=== PATIENT | female | born 1960 | race African-American/Black ===

== ENCOUNTER 2020-12-09 10:10 | Inpatient (IN) | payer OTHER ==
[2020-12-09] MEDS ORDERED: Lorazepam 2 MG/ML VIAL ONE ×2 (10:17→10:26)
[2020-12-09] MEDS ORDERED: diphenhydrAMINE 50 MG CAP ONE (10:18)
[2020-12-09] MEDS ORDERED: diphenhydrAMINE 50 MG/ML VIAL ONE (10:18)
[2020-12-09] MEDS ORDERED: Haloperidol Lactate 5 MG/ML VIAL ONE (10:18)
[2020-12-09 10:49] LABS: #Eosinphils 0.1 thou/uL (0.0-0.7); #Lymphocytes 1.9 thou/uL (1.20-3.40); #Monocytes 0.6 thou/uL (0.11-0.59); %Basophils 0.2 % (0.0-1.0); %Eosinophils 1.9 % (0.0-10.0); %Lymphocytes 25.5 % (21.0-51.0); %Monocytes 7.3 % (0.0-10.0); %Neutrophils 65.2 % (42.0-75.0); Hemoglobin 9.9 g/dL (12.0-16.0); Mean Corpuscular HGB CONC 32.9 g/dL (32.0-36.0); Mean Corpuscular Volume 94.4 fL (78.0-98.0); Mean Platelet Volume 6.2 fL (7.4-10.4); Platelet Count 295 thou/uL (130-400); RBC Distribution Width 15.6 % (11.5-14.5); Red Blood Cell (RBC) Count 3.18 mill/uL (4.20-5.40); White Blood Cell (WBC) Count 7.6 thou/uL (4.8-10.8)
[2020-12-09 11:12] LABS: ALT (SGPT) 118 U/L (8-55); AST (SGOT) 36 U/L (5-34); Acetaminophen Less than 6.0 mcg/mL (10.0-30.0); Albumin 3.3 g/dL (3.5-5.0); Alcohol Less than 10 mg/dL (Less than 10); Alkaline Phosphatase 358 U/L (40-110); Anion Gap 13 mmol/L (10-20); BUN (Urea Nitrogen) 22 mg/dL (9.8-20.1); Bilirubin, Total 0.3 mg/dL (0.2-1.2); CK (CPK) 233 U/L (29-168); Calc. Creatinine Clearance 0 mL/min (70-130); Calcium 9.4 mg/dL (7.8-10.44); Carbon Dioxide 25 mmol/L (22-29); Chloride 104 mmol/L (98-107); Globulin 3.8 g/dL (2.4-3.5); Glucose 100 mg/dL (70-105); Potassium 3.9 mmol/L (3.5-5.1); Protein, Total 7.1 g/dL (6.0-8.3); Salicylate Less than 8.0 mg/dL (15.0-30.0); Sodium 138 mmol/L (136-145)
[2020-12-09 11:57] LABS: Amphetamine Not Detected (NotDetected); Barbiturates Screen Not Detected (NotDetected); Benzodiazepine Screen Not Detected (NotDetected); Cocaine Metabolite Screen Not Detected (NotDetected); Medtox Control Line Valid? VALID (VALID); Medtox Reader # READER 4; Methadone Not Detected (NotDetected); Methamphetamine Not Detected (NotDetected); Opiate Screen Not Detected (NotDetected); Oxycodone Screen Not Detected (NotDetected); Phencyclidine (PCP) Not Detected (NotDetected); THC/Cannabinoid Screen Not Detected (NotDetected); Tricyclic Screen Not Detected (NotDetected)
[2020-12-09 12:05] LABS: Bilirubin Negative (Negative); Blood, Urine Trace (Negative); Clarity Clear (Clear); Glucose, Urine (Dipstick) Negative (Negative); Ketone, Urine Trace mg/dL (Negative); Leukocyte Negative (Negative); Nitrite Negative (Negative); Protein, Urine (Dipstick) 100 mg/dL (Neg-Trace); Urobilinogen 0.2 mg/dL (Less than 2)
[2020-12-09 12:12] LABS: Bacteria/HPF None Seen HPF (None Seen); Squamous Epithelial 0-3 HPF (0-3); WBC/HPF 0-3 HPF (0-3)
[2020-12-09] MEDS ORDERED: Docusate 100 MG CAP PO SCH (17:15)
[2020-12-09] MEDS ORDERED: Lantus 1000 UNITS/10 ML VIAL SC SCH (18:00)
[2020-12-09] MEDS ORDERED: Losartan 25 MG TAB PO SCH (18:00)
[2020-12-09] MEDS ORDERED: traZODone HCl 50 MG TAB ONE (20:51)
[2020-12-09] MEDS ORDERED: OLANZapine 5 MG TAB ONE (20:51)
[2020-12-09] MEDS ORDERED: OXcarbazepine 300 MG TAB PO SCH (21:00)
[2020-12-09] MEDS ORDERED: OXcarbazepine 600 MG TAB PO SCH (21:00)
[2020-12-10] MEDS ORDERED: Acetaminophen 500 MG TAB ONE (02:49)
[2020-12-10] MEDS ORDERED: OLANZapine 5 MG TAB ONE ×2 (06:37→17:07)
[2020-12-10] MEDS ORDERED: Metoprolol Tartrate 25 MG TAB ONE (06:37)
[2020-12-10] MEDS ORDERED: Aspirin Chewable 81 MG TAB ONE (06:37)
[2020-12-10] MEDS ORDERED: Losartan 25 MG TAB PO SCH (07:45)
[2020-12-10] MEDS ORDERED: risperiDONE 1 MG TAB ONE (12:39)
[2020-12-10] MEDS ORDERED: Ziprasidone 20 MG VIAL ONE (19:50)
[2020-12-10] MEDS ORDERED: Promethazine 25 MG TAB ONE (19:50)
[2020-12-11] MEDS ORDERED: Acetaminophen 325 MG TAB ONE ×3 (05:43→21:35)
[2020-12-11] MEDS ORDERED: Haloperidol Lactate 5 MG/ML VIAL ONE (06:12)
[2020-12-11] MEDS ORDERED: Metoprolol Tartrate 25 MG TAB ONE (21:35)
[2020-12-11] MEDS ORDERED: traZODone HCl 50 MG TAB ONE (21:35)
[2020-12-11] MEDS ORDERED: Promethazine 25 MG TAB ONE (21:35)
[2020-12-12] MEDS ORDERED: Haloperidol Lactate 5 MG/ML VIAL ONE (04:55)
[2020-12-12] MEDS ORDERED: OLANZapine 5 MG TAB ONE (07:52)
[2020-12-12] MEDS ORDERED: Aspirin Chewable 81 MG TAB ONE (07:52)
[2020-12-12] MEDS ORDERED: Promethazine 25 MG TAB ONE ×2 (07:52→22:59)
[2020-12-12] MEDS ORDERED: Metoprolol Tartrate 25 MG TAB ONE (07:52)
[2020-12-12 20:10] LABS: SARS-CoV-2 NAA Rapid Test Not Detected (NotDetected)
[2020-12-12] MEDS ORDERED: traZODone HCl 50 MG TAB ONE (22:57)
[2020-12-12] MEDS ORDERED: Promethazine HCl 25 MG/ML VIAL ONE (22:58)
[2020-12-13] MEDS ORDERED: Promethazine 25 MG TAB ONE (08:14)
[2020-12-13] MEDS ORDERED: OLANZapine 5 MG TAB ONE (08:14)
[2020-12-13] MEDS ORDERED: Aspirin Chewable 81 MG TAB ONE (08:14)
[2020-12-13] MEDS ORDERED: Metoprolol Tartrate 25 MG TAB ONE (08:14)
[2020-12-13 14:06] LABS: #Eosinphils 0.1 thou/uL (0.0-0.7); #Lymphocytes 1.6 thou/uL (1.20-3.40); #Monocytes 0.6 thou/uL (0.11-0.59); #Neutrophils 8.1 thou/uL (1.40-6.50); %Basophils 0.4 % (0.0-1.0); %Eosinophils 0.9 % (0.0-10.0); %Lymphocytes 15.1 % (21.0-51.0); %Monocytes 6.1 % (0.0-10.0); %Neutrophils 77.5 % (42.0-75.0); Hemoglobin 10.4 g/dL (12.0-16.0); Mean Corpuscular HGB CONC 31.8 g/dL (32.0-36.0); Mean Corpuscular Hemoglobin 30.3 pg (27.0-31.0); Mean Corpuscular Volume 95.2 fL (78.0-98.0); Mean Platelet Volume 6.8 fL (7.4-10.4); Platelet Count 309 thou/uL (130-400); RBC Distribution Width 15.7 % (11.5-14.5); Red Blood Cell (RBC) Count 3.43 mill/uL (4.20-5.40); White Blood Cell (WBC) Count 10.4 thou/uL (4.8-10.8)
[2020-12-13 14:22] LABS: ALT (SGPT) 93 U/L (8-55); AST (SGOT) 55 U/L (5-34); Albumin 3.1 g/dL (3.5-5.0); Alkaline Phosphatase 319 U/L (40-110); Anion Gap 16 mmol/L (10-20); BUN (Urea Nitrogen) 28 mg/dL (9.8-20.1); Bilirubin, Total 0.4 mg/dL (0.2-1.2); CK (CPK) 115 U/L (29-168); Calc. Creatinine Clearance 0 mL/min (70-130); Carbon Dioxide 18 mmol/L (22-29); Chloride 103 mmol/L (98-107); Globulin 3.9 g/dL (2.4-3.5); Glucose 164 mg/dL (70-105); Potassium 4.8 mmol/L (3.5-5.1); Sodium 132 mmol/L (136-145)
[2020-12-13] MEDS ORDERED: Furosemide 40 MG TAB ONE (15:25)
[2020-12-13] MEDS ORDERED: Nitroglycerin 2% Ointment 1 INCH/1 GM Packet ONE (18:47)
[2020-12-13] MEDS ORDERED: cloNIDine 0.1 MG TAB ONE (18:47)
[2020-12-13 18:59] LABS: Troponin I 0.019 ng/mL (< 0.028)
[2020-12-13] MEDS: Melatonin 3 MG TAB PO SCH ×4 (20:36→22:09)
[2020-12-13] MEDS: Atorvastatin Calcium 10 MG TAB PO SCH ×4 (20:36→22:09)
[2020-12-13] MEDS: Mirtazapine 15 MG TAB PO SCH ×4 (20:37→22:09)
[2020-12-13] MEDS: OLANZapine 5 MG TAB PO SCH ×8 (20:40→22:15)
[2020-12-13] MEDS: Losartan 25 MG TAB PO SCH ×6 (20:41→22:14)
[2020-12-13] MEDS: OXcarbazepine 300 MG TAB PO SCH ×8 (20:43→22:15)
[2020-12-13] MEDS: traZODone HCl 50 MG TAB PO SCH ×4 (20:50→22:10)
[2020-12-13] MEDS: Promethazine 25 MG TAB PO SCH ×6 (20:50→22:15)
[2020-12-13 21:48] LABS: Troponin I 0.013 ng/mL (< 0.028)
[2020-12-13] MEDS: Magnesium Oxide 400 MG TAB PO SCH ×4 (21:54→22:14)
[2020-12-13] MEDS: Docusate 100 MG CAP PO SCH ×4 (21:57→22:16)
[2020-12-13] MEDS: Spironolactone 25 MG TAB PO SCH ×4 (21:57→22:16)
[2020-12-13] MEDS ORDERED: Dextrose 5% in Water 1,000 ML IV PRN (23:12)
[2020-12-13] MEDS ORDERED: Dextrose 50% Abboject 50 ML SYRINGE SLOW IVP PRN (23:12)
[2020-12-13] MEDS ORDERED: Furosemide 40 MG/4 ML VIAL SLOW IVP SCH (23:15)
[2020-12-14 00:52] LABS: Bacteria/HPF None Seen HPF (None Seen); Bilirubin Negative (Negative); Blood, Urine Negative (Negative); Clarity Clear (Clear); Glucose, Urine (Dipstick) Normal (Negative); Ketone, Urine Negative (Negative); Leukocyte 25 Leu/uL (Negative); Nitrite Negative (Negative); Protein, Urine (Dipstick) 70 mg/dL (Neg-Trace); RBC/HPF 0-3 HPF (0-3); Specific Gravity, Urine 1.009 (1.002-1.036); Squamous Epithelial 0-3 HPF (0-3); Urobilinogen Normal mg/dL (Less than 2); WBC/HPF 0-3 HPF (0-3); pH, Urine 5.5 (5.0-9.0)
[2020-12-14 01:05] LABS: Amphetamine Not Detected (NotDetected); Barbiturates Screen Not Detected (NotDetected); Benzodiazepine Screen Not Detected (NotDetected); Cocaine Metabolite Screen Not Detected (NotDetected); Medtox Control Line Valid? VALID (VALID); Medtox Reader # READER 1; Methadone Not Detected (NotDetected); Methamphetamine Not Detected (NotDetected); Opiate Screen Not Detected (NotDetected); Oxycodone Screen Not Detected (NotDetected); Phencyclidine (PCP) Not Detected (NotDetected); THC/Cannabinoid Screen Not Detected (NotDetected); Tricyclic Screen Not Detected (NotDetected)
[2020-12-14 05:19] LABS: #Eosinphils 0.2 thou/uL (0.0-0.7); #Lymphocytes 1.4 thou/uL (1.20-3.40); #Monocytes 0.5 thou/uL (0.11-0.59); #Neutrophils 4.2 thou/uL (1.40-6.50); %Basophils 0.4 % (0.0-1.0); %Eosinophils 3.8 % (0.0-10.0); %Lymphocytes 22.1 % (21.0-51.0); %Monocytes 7.9 % (0.0-10.0); %Neutrophils 65.8 % (42.0-75.0); Hemoglobin 10.1 g/dL (12.0-16.0); Mean Corpuscular HGB CONC 32.3 g/dL (32.0-36.0); Mean Corpuscular Hemoglobin 30.9 pg (27.0-31.0); Mean Corpuscular Volume 95.7 fL (78.0-98.0); Mean Platelet Volume 6.7 fL (7.4-10.4); Platelet Count 326 thou/uL (130-400); RBC Distribution Width 15.8 % (11.5-14.5); Red Blood Cell (RBC) Count 3.28 mill/uL (4.20-5.40); White Blood Cell (WBC) Count 6.3 thou/uL (4.8-10.8)
[2020-12-14 05:32] LABS: Anion Gap 15 mmol/L (10-20); BUN (Urea Nitrogen) 25 mg/dL (9.8-20.1); Calc. Creatinine Clearance 74 mL/min (70-130); Carbon Dioxide 22 mmol/L (22-29); Chloride 100 mmol/L (98-107); Glucose 146 mg/dL (70-105); Salicylate Less than 8.0 mg/dL (15.0-30.0); Sodium 133 mmol/L (136-145)
[2020-12-14] MEDS: Furosemide 40 MG/4 ML VIAL SLOW IVP SCH ×2 (05:40→14:21)
[2020-12-14] MEDS: HumaLOG 300 UNITS/3 ML VIAL SC PRN ×4 (05:47→20:30)
[2020-12-14] MEDS: Magnesium Oxide 400 MG TAB PO SCH (08:39)
[2020-12-14] MEDS: Aspirin Chewable 81 MG TAB PO SCH (08:39)
[2020-12-14] MEDS: OXcarbazepine 300 MG TAB PO SCH ×2 (08:40→20:18)
[2020-12-14] MEDS: Promethazine 25 MG TAB PO SCH ×2 (08:40→17:21)
[2020-12-14] MEDS: Spironolactone 25 MG TAB PO SCH (08:41)
[2020-12-14] MEDS: Docusate 100 MG CAP PO SCH ×2 (08:41→17:20)
[2020-12-14] MEDS: OLANZapine 5 MG TAB PO SCH ×3 (08:41→20:16)
[2020-12-14] MEDS: Losartan 25 MG TAB PO SCH ×2 (08:41→17:20)
[2020-12-14] MEDS: Enoxaparin Sodium 30 MG/0.3 ML SYRINGE SC SCH (08:42)
[2020-12-14] MEDS ORDERED: Nicotine 21 MG PATCH TD SCH (09:00)
[2020-12-14] MEDS ORDERED: Enoxaparin Sodium 30 MG/0.3 ML SYRINGE SC SCH (09:00)
[2020-12-14] MEDS: Atorvastatin Calcium 10 MG TAB PO SCH ×2 (09:40→20:18)
[2020-12-14] MEDS: Mirtazapine 15 MG TAB PO SCH ×2 (09:40→20:18)
[2020-12-14] MEDS: Melatonin 3 MG TAB PO SCH ×2 (09:40→20:15)
[2020-12-14] MEDS: traZODone HCl 50 MG TAB PO SCH ×2 (09:40→20:17)
[2020-12-14] MEDS: Acetaminophen 325 MG TAB PO PRN ×2 (12:21→21:30)
[2020-12-14] MEDS ORDERED: Benzonatate 100 MG CAP PO PRN (21:50)
[2020-12-15] MEDS: Acetaminophen 325 MG TAB PO PRN ×2 (04:58→11:15)
[2020-12-15] MEDS: Furosemide 20 MG/2 ML VIAL SLOW IVP SCH ×2 (05:39→14:12)
[2020-12-15 06:13] LABS: Anion Gap 14 mmol/L (10-20); BUN (Urea Nitrogen) 28 mg/dL (9.8-20.1); Calc. Creatinine Clearance 79 mL/min (70-130); Calcium 8.4 mg/dL (7.8-10.44); Carbon Dioxide 25 mmol/L (22-29); Chloride 99 mmol/L (98-107); Glucose 139 mg/dL (70-105); Sodium 134 mmol/L (136-145)
[2020-12-15] MEDS: OXcarbazepine 300 MG TAB PO SCH ×2 (07:57→21:03)
[2020-12-15] MEDS: Spironolactone 25 MG TAB PO SCH (07:57)
[2020-12-15] MEDS: OLANZapine 5 MG TAB PO SCH ×3 (07:58→21:03)
[2020-12-15] MEDS: Docusate 100 MG CAP PO SCH ×2 (07:58→17:09)
[2020-12-15] MEDS: Aspirin Chewable 81 MG TAB PO SCH (07:58)
[2020-12-15] MEDS: Promethazine 25 MG TAB PO SCH ×2 (07:59→17:09)
[2020-12-15] MEDS: Losartan 25 MG TAB PO SCH ×2 (07:59→17:08)
[2020-12-15] MEDS: Magnesium Oxide 400 MG TAB PO SCH (07:59)
[2020-12-15] MEDS: Enoxaparin Sodium 30 MG/0.3 ML SYRINGE SC SCH (08:00)
[2020-12-15] MEDS: HumaLOG 300 UNITS/3 ML VIAL SC PRN ×2 (10:54→17:08)
[2020-12-15] MEDS: Atorvastatin Calcium 10 MG TAB PO SCH (21:02)
[2020-12-15] MEDS: traZODone HCl 50 MG TAB PO SCH (21:02)
[2020-12-15] MEDS: Melatonin 3 MG TAB PO SCH (21:02)
[2020-12-15] MEDS: Mirtazapine 15 MG TAB PO SCH (21:02)
[2020-12-16] MEDS ORDERED: hydrALAZINE 20 MG/ML VIAL SLOW IVP SCH (01:00)
[2020-12-16] MEDS: Acetaminophen 325 MG TAB PO PRN (02:20)
[2020-12-16 05:25] VITALS: BMI 32.3
[2020-12-16 05:57] LABS: Anion Gap 10 mmol/L (10-20); BUN (Urea Nitrogen) 25 mg/dL (9.8-20.1); Calc. Creatinine Clearance 77 mL/min (70-130); Calcium 8.9 mg/dL (7.8-10.44); Carbon Dioxide 29 mmol/L (22-29); Chloride 99 mmol/L (98-107); Glucose 143 mg/dL (70-105); Potassium 3.9 mmol/L (3.5-5.1); Sodium 134 mmol/L (136-145)
[2020-12-16] MEDS: Furosemide 20 MG/2 ML VIAL SLOW IVP SCH (06:12)
[2020-12-16] MEDS: OLANZapine 5 MG TAB PO SCH ×3 (06:12→20:33)
[2020-12-16] MEDS: Magnesium Oxide 400 MG TAB PO SCH (06:12)
[2020-12-16] MEDS: Losartan 25 MG TAB PO SCH ×2 (06:13→18:18)
[2020-12-16] MEDS: Promethazine 25 MG TAB PO SCH ×2 (06:13→18:18)
[2020-12-16] MEDS: HumaLOG 300 UNITS/3 ML VIAL SC PRN ×2 (06:13→20:34)
[2020-12-16] MEDS: Spironolactone 25 MG TAB PO SCH (06:13)
[2020-12-16] MEDS: OXcarbazepine 300 MG TAB PO SCH ×2 (06:18→20:33)
[2020-12-16] MEDS: Aspirin Chewable 81 MG TAB PO SCH (08:34)
[2020-12-16] MEDS: Enoxaparin Sodium 30 MG/0.3 ML SYRINGE SC SCH (08:34)
[2020-12-16] MEDS: Docusate 100 MG CAP PO SCH ×2 (08:34→18:18)
[2020-12-16] MEDS: Atorvastatin Calcium 10 MG TAB PO SCH (20:32)
[2020-12-16] MEDS: Melatonin 3 MG TAB PO SCH (20:32)
[2020-12-16] MEDS: Mirtazapine 15 MG TAB PO SCH (20:32)
[2020-12-16] MEDS: traZODone HCl 50 MG TAB PO SCH (20:33)
[2020-12-17] MEDS: Acetaminophen 325 MG TAB PO PRN (01:11)
[2020-12-17 06:10] LABS: Anion Gap 15 mmol/L (10-20); BUN (Urea Nitrogen) 23 mg/dL (9.8-20.1); Calc. Creatinine Clearance 77 mL/min (70-130); Calcium 9.1 mg/dL (7.8-10.44); Carbon Dioxide 25 mmol/L (22-29); Chloride 98 mmol/L (98-107); Glucose 129 mg/dL (70-105); Potassium 4.1 mmol/L (3.5-5.1); Sodium 134 mmol/L (136-145)
[2020-12-17] MEDS: Magnesium Oxide 400 MG TAB PO SCH (06:15)
[2020-12-17] MEDS: OLANZapine 5 MG TAB PO SCH ×2 (06:15→14:16)
[2020-12-17] MEDS: Losartan 25 MG TAB PO SCH (06:15)
[2020-12-17] MEDS: Promethazine 25 MG TAB PO SCH (06:16)
[2020-12-17] MEDS: OXcarbazepine 300 MG TAB PO SCH (06:16)
[2020-12-17] MEDS: Spironolactone 25 MG TAB PO SCH (06:16)
[2020-12-17] MEDS: Enoxaparin Sodium 30 MG/0.3 ML SYRINGE SC SCH (08:23)
[2020-12-17] MEDS: Docusate 100 MG CAP PO SCH (08:24)
[2020-12-17] MEDS: Aspirin Chewable 81 MG TAB PO SCH (08:24)
[2020-12-17] MEDS ORDERED: Furosemide 40 MG TAB PO SCH (09:00)
[2020-12-17] MEDS: HumaLOG 300 UNITS/3 ML VIAL SC PRN (11:02)
[2020-12-17] MEDS ORDERED: Haloperidol Lactate 5 MG/ML VIAL SLOW IVP SCH (12:00)
[2020-12-17] MEDS ORDERED: Ziprasidone 20 MG VIAL IM PRN (12:06)
[2020-12-17 15:34] VITALS: BP 167/77; TEMP 97.3
== END 2020-12-17 16:51 | DRG 885 ==
LOC: ERS 10:10 → UNDOADMIN 16:00 → 2SE 16:00
PROVIDERS: ADMIT Internal Medicine; ATTEND Internal Medicine
DX: F25.9 Schizoaffective disorder, unspecified (principal); I50.23 Acute on chronic systolic (congestive) heart failure; E87.1 Hypo-osmolality and hyponatremia; N17.9 Acute kidney failure, unspecified; I11.0 Hypertensive heart disease with heart failure; E11.9 Type 2 diabetes mellitus without complications; E78.5 Hyperlipidemia, unspecified; F17.210 Nicotine dependence, cigarettes, uncomplicated; D64.9 Anemia, unspecified; G40.909 Epilepsy, unspecified, not intractable, without status epilepticus; Z90.710 Acquired absence of both cervix and uterus; Z79.82 Long term (current) use of aspirin; Z79.4 Long term (current) use of insulin
CPT/HCPCS: 0240U; 36415; 36416; 70450; 71045; 74176; 80048; 80053; 80179; 80306; 80307; 81001; 81003; 81015; 82140; 82550; 83880; 84443; 84484; 85025; 85379; 93005; 93306; 93798; 96372; J0360; J1200; J1630; J1650; J1815; J1940; J2060; J2550; J3486; Q0169

== ENCOUNTER 2021-08-09 01:48 | Emergency (ER) | payer OTHER ==
[2021-08-09] MEDS ORDERED: Haloperidol Lactate 5 MG/ML VIAL ONE (02:16)
[2021-08-09] MEDS ORDERED: Lorazepam 1 MG TAB ONE (05:51)
== END 2021-08-09 08:33 | disposition home or self-care (01) ==
LOC: ERS 01:48
DX: F20.9 Schizophrenia, unspecified (principal); I11.0 Hypertensive heart disease with heart failure; I50.9 Heart failure, unspecified; E11.9 Type 2 diabetes mellitus without complications; E78.5 Hyperlipidemia, unspecified; F17.210 Nicotine dependence, cigarettes, uncomplicated
CPT/HCPCS: 96372; 99285; J1630

== ENCOUNTER 2022-02-27 10:19 | Outpatient (CLI) | payer OTHER, MEDICARE | END 2022-02-27 10:20 | disposition home or self-care (01) | LOC: BICRAD 10:19 | PROVIDERS: ATTEND Internal Medicine | DX: M54.50 Low back pain, unspecified (principal); M47.816 Spondylosis without myelopathy or radiculopathy, lumbar region | CPT/HCPCS: 72100 ==

== ENCOUNTER 2022-04-03 10:01 | Inpatient (IN) | payer OTHER ==
[2022-04-03 11:14] LABS: #Eosinphils 0.1 thou/uL (0.0-0.7); #Lymphocytes 1.4 thou/uL (1.20-3.40); #Monocytes 0.8 thou/uL (0.11-0.59); #Neutrophils 7.8 thou/uL (1.40-6.50); %Basophils 0.1 % (0.0-1.0); %Eosinophils 0.6 % (0.0-10.0); %Lymphocytes 13.7 % (21.0-51.0); %Monocytes 7.7 % (0.0-10.0); Hemoglobin 9.9 g/dL (12.0-16.0); Mean Corpuscular HGB CONC 33.2 g/dL (32.0-36.0); Mean Corpuscular Hemoglobin 33.1 pg (27.0-31.0); Mean Corpuscular Volume 99.5 fL (78.0-98.0); Mean Platelet Volume 6.9 fL (7.4-10.4); Platelet Count 295 thou/uL (130-400); RBC Distribution Width 12.2 % (11.5-14.5); Red Blood Cell (RBC) Count 2.98 mill/uL (4.20-5.40)
[2022-04-03 11:35] LABS: ALT (SGPT) 11 U/L (8-55); AST (SGOT) 14 U/L (5-34); Albumin 3.1 g/dL (3.4-4.8); Alkaline Phosphatase 181 U/L (40-110); Anion Gap 17 mmol/L (10-20); BUN (Urea Nitrogen) 34 mg/dL (9.8-20.1); Bilirubin, Total 0.2 mg/dL (0.2-1.2); Calc. Creatinine Clearance 0 mL/min (70-130); Calcium 8.6 mg/dL (7.8-10.44); Carbon Dioxide 23 mmol/L (23-31); Chloride 106 mmol/L (98-107); Estimated GFR 44; Globulin 3.6 g/dL (2.4-3.5); Glucose 337 mg/dL (80-115); Potassium 4.5 mmol/L (3.5-5.1); Protein, Total 6.7 g/dL (5.8-8.1); Sodium 141 mmol/L (136-145)
[2022-04-03 11:57] LABS: CKMB 3.9 ng/mL (0-6.6)
[2022-04-03] MEDS ORDERED: Iopamidol-370 76% 500 ML 1 ML ONE (13:00)
[2022-04-03] MEDS ORDERED: Dextrose 50% Abboject 50 ML SYRINGE SLOW IVP PRN (13:03)
[2022-04-03] MEDS ORDERED: Dextrose 5% in Water 1,000 ML IV PRN (13:03)
[2022-04-03 13:40] LABS: PTT 32.9 sec (22.9-36.1); Prothrombin Time 13.7 sec (12.0-14.7)
[2022-04-03 13:49] LABS: Magnesium 2.1 mg/dL (1.6-2.6)
[2022-04-03] MEDS ORDERED: Lidocaine 1% MPF 2 ML VIAL ONE (17:10)
[2022-04-03] MEDS ORDERED: Lidocaine 1% PF 5 ML VIAL ONE (17:13)
[2022-04-03] MEDS ORDERED: CEFAZOLIN 1 GM VIAL ONE (17:15)
[2022-04-03] MEDS ORDERED: CEFAZOLIN 2 GM VIAL ONE (17:17)
[2022-04-03] MEDS ORDERED: Lidocaine 1% (PF) 30 ML VIAL IJ SCH (17:30)
[2022-04-03] MEDS ORDERED: Morphine 2 MG/ML VIAL ONE (17:53)
[2022-04-03] MEDS ORDERED: HYDROcodone/Acetaminophen 5/325 mg Tablet PO PRN (21:23)
[2022-04-03] MEDS: Famotidine/PF 20 mg/2ml Vial SLOW IVP SCH (21:38)
[2022-04-03] MEDS: Morphine 2 MG/ML VIAL SLOW IVP PRN (21:39)
[2022-04-03 22:52] VITALS: BMI 38.5
[2022-04-04 04:47] LABS: #Eosinphils 0.1 thou/uL (0.0-0.7); #Lymphocytes 2.1 thou/uL (1.20-3.40); #Neutrophils 5.9 thou/uL (1.40-6.50); %Basophils 0.5 % (0.0-1.0); %Eosinophils 0.8 % (0.0-10.0); %Lymphocytes 22.5 % (21.0-51.0); %Monocytes 11.1 % (0.0-10.0); %Neutrophils 65.1 % (42.0-75.0); Hemoglobin 9.6 g/dL (12.0-16.0); Mean Corpuscular HGB CONC 32.7 g/dL (32.0-36.0); Mean Corpuscular Hemoglobin 32.7 pg (27.0-31.0); Mean Platelet Volume 7.6 fL (7.4-10.4); Platelet Count 278 thou/uL (130-400); RBC Distribution Width 12.4 % (11.5-14.5); Red Blood Cell (RBC) Count 2.92 mill/uL (4.20-5.40); White Blood Cell (WBC) Count 9.1 thou/uL (4.8-10.8)
[2022-04-04] MEDS: Morphine 2 MG/ML VIAL SLOW IVP PRN (05:03)
[2022-04-04 05:17] LABS: Anion Gap 12 mmol/L (10-20); BUN (Urea Nitrogen) 33 mg/dL (9.8-20.1); Calc. Creatinine Clearance 73 mL/min (70-130); Calcium 8.8 mg/dL (7.8-10.44); Carbon Dioxide 27 mmol/L (23-31); Chloride 109 mmol/L (98-107); Estimated GFR 50; Glucose 88 mg/dL (80-115); Potassium 4.3 mmol/L (3.5-5.1); Sodium 144 mmol/L (136-145)
[2022-04-04] MEDS ORDERED: Non-Formulary Item 1 EACH (Ferrous Sulfate [Ferrous Sulfate] 325 MG Tab) PO SCH (09:00)
[2022-04-04] MEDS ORDERED: Sacubitril 49 MG/Valsartan 51 MG TABLET PO SCH (09:00)
[2022-04-04] MEDS ORDERED: NIFEdipine XL 30 MG TAB PO SCH (09:00)
[2022-04-04] MEDS: Ferrous Sulfate 325 MG TAB PO SCH (09:15)
[2022-04-04] MEDS: Famotidine 20 MG TAB PO SCH ×2 (09:15→21:12)
[2022-04-04] MEDS: Sacubitril 49 MG/Valsartan 51 MG TABLET PO SCH ×2 (09:15→21:12)
[2022-04-04] MEDS: Haloperidol 5 MG TAB PO SCH ×2 (09:15→21:12)
[2022-04-04] MEDS: Benztropine 1 MG TAB PO SCH ×2 (09:15→21:12)
[2022-04-04] MEDS: Famotidine/PF 20 mg/2ml Vial SLOW IVP SCH (09:16)
[2022-04-04] MEDS: Divalproex Sodium DR 500 MG TAB PO SCH ×2 (09:16→21:12)
[2022-04-04 10:17] LABS: Fluid, pH - Pleural Fld Greater than 7.50 (7.60 - 7.66)
[2022-04-04 10:35] LABS: Fluid, Triglycerides 40 mg/dL (Not Available); Pleural Fluid, Amylase Less than 30 U/L (Not Available); Pleural Fluid, Glucose 79 mg/dL; Pleural Fluid, LDH 272 U/L (Not Available); Pleural Fluid, Protein 2.9 g/dL
[2022-04-04] MEDS ORDERED: Labetalol HCl 100 MG/20 ML VIAL SLOW IVP PRN (11:55)
[2022-04-04] MEDS ORDERED: hydrALAZINE 20 MG/ML VIAL SLOW IVP PRN (11:55)
[2022-04-04] MEDS ORDERED: Moisturizing Cream (Eucerin) 113 GM JAR TOP PRN (11:55)
[2022-04-04] MEDS ORDERED: Loratadine 10 MG TAB PO PRN (11:55)
[2022-04-04] MEDS ORDERED: Artificial Tear Sol 15 ML BOT EA EYE PRN (11:55)
[2022-04-04] MEDS ORDERED: Senokot S 8.6-50 MG TAB PO PRN (11:55)
[2022-04-04 12:00] LABS: RBC Count-Automated (BF) 10563 /cu.mm; WBC/Nucleated-Auto (BF) 2754 /cu.mm
[2022-04-04 12:01] LABS: BF Color Red; Body Fluid Source Thoracentesis Fluid; Clarity Cloudy/Turbid (Clear); Tube # EDTA
[2022-04-04 12:02] LABS: BF Segmented Neutrophils 71 %; Cell Count Non Hematic 24 %; Lymphocytes 5 %
[2022-04-04] MEDS: HumaLOG 300 UNITS/3 ML VIAL SC PRN ×2 (17:09→21:11)
[2022-04-04] MEDS ORDERED: Non-Formulary Item 1 EACH (Aripiprazole [Abilify] 30 MG Tablet) PO SCH (21:00)
[2022-04-04] MEDS: Aripiprazole 15 MG TAB PO SCH (21:11)
[2022-04-04] MEDS: HYDROcodone/Acetaminophen 5/325 mg Tablet PO PRN (21:12)
[2022-04-04] MEDS: NIFEdipine XL 30 MG TAB PO SCH (21:12)
[2022-04-04] MEDS: Atorvastatin Calcium 10 MG TAB PO SCH (21:12)
[2022-04-05 04:33] LABS: #Eosinphils 0.2 thou/uL (0.0-0.7); #Lymphocytes 2.2 thou/uL (1.20-3.40); #Monocytes 0.9 thou/uL (0.11-0.59); #Neutrophils 3.8 thou/uL (1.40-6.50); %Basophils 0.4 % (0.0-1.0); %Eosinophils 2.2 % (0.0-10.0); %Lymphocytes 31.7 % (21.0-51.0); %Neutrophils 53.7 % (42.0-75.0); Hemoglobin 9.5 g/dL (12.0-16.0); Mean Corpuscular HGB CONC 32.6 g/dL (32.0-36.0); Mean Corpuscular Hemoglobin 32.7 pg (27.0-31.0); Mean Platelet Volume 7.2 fL (7.4-10.4); Platelet Count 288 thou/uL (130-400); RBC Distribution Width 12.3 % (11.5-14.5); Red Blood Cell (RBC) Count 2.91 mill/uL (4.20-5.40); White Blood Cell (WBC) Count 7.1 thou/uL (4.8-10.8)
[2022-04-05 04:43] LABS: Anion Gap 14 mmol/L (10-20); BUN (Urea Nitrogen) 42 mg/dL (9.8-20.1); Calc. Creatinine Clearance 60 mL/min (70-130); Calcium 8.5 mg/dL (7.8-10.44); Carbon Dioxide 25 mmol/L (23-31); Chloride 106 mmol/L (98-107); Estimated GFR 40; Glucose 147 mg/dL (80-115); Potassium 4.3 mmol/L (3.5-5.1); Sodium 141 mmol/L (136-145)
[2022-04-05] MEDS: Morphine 2 MG/ML VIAL SLOW IVP PRN (05:37)
[2022-04-05] MEDS: HumaLOG 300 UNITS/3 ML VIAL SC PRN ×3 (06:08→21:00)
[2022-04-05] MEDS: Ferrous Sulfate 325 MG TAB PO SCH (08:18)
[2022-04-05] MEDS: Haloperidol 5 MG TAB PO SCH ×2 (08:18→20:58)
[2022-04-05] MEDS: NIFEdipine XL 30 MG TAB PO SCH ×2 (08:18→20:57)
[2022-04-05] MEDS: Sacubitril 49 MG/Valsartan 51 MG TABLET PO SCH ×2 (08:18→20:56)
[2022-04-05] MEDS: Famotidine 20 MG TAB PO SCH ×2 (08:18→20:58)
[2022-04-05] MEDS: Benztropine 1 MG TAB PO SCH ×2 (08:18→20:58)
[2022-04-05] MEDS: Divalproex Sodium DR 500 MG TAB PO SCH ×2 (08:19→20:58)
[2022-04-05 19:09] LABS: Bacteria/HPF None Seen HPF (None Seen); RBC/HPF 0-3 HPF (0-3); WBC/HPF 0-3 HPF (0-3)
[2022-04-05 19:10] LABS: Bilirubin Negative (Negative); Blood, Urine Trace (Negative); Clarity Clear (Clear); Glucose, Urine (Dipstick) 70 mg/dL (Negative); Ketone, Urine Negative (Negative); Leukocyte Negative Leu/uL (Negative); Nitrite Negative (Negative); Protein, Urine (Dipstick) 70 mg/dL (Neg-Trace); Specific Gravity, Urine 1.019 (1.002-1.036); Urobilinogen Normal mg/dL (Less than 2); pH, Urine 5.5 (5.0-9.0)
[2022-04-05] MEDS: Aripiprazole 15 MG TAB PO SCH (20:56)
[2022-04-05] MEDS: Melatonin 3 MG TAB PO SCH (20:57)
[2022-04-05] MEDS: Atorvastatin Calcium 10 MG TAB PO SCH (20:58)
[2022-04-05] MEDS: Insulin Glargine 30 UNITS/0.3 ML VIAL SC SCH (20:58)
[2022-04-06] MEDS: HYDROcodone/Acetaminophen 5/325 mg Tablet PO PRN (03:35)
[2022-04-06 06:27] LABS: Anion Gap 11 mmol/L (10-20); BUN (Urea Nitrogen) 37 mg/dL (9.8-20.1); Calc. Creatinine Clearance 69 mL/min (70-130); Calcium 8.1 mg/dL (7.8-10.44); Carbon Dioxide 24 mmol/L (23-31); Chloride 106 mmol/L (98-107); Estimated GFR 47; Glucose 221 mg/dL (80-115); Magnesium 2.1 mg/dL (1.6-2.6); Phosphorus 3.3 mg/dL (2.3-4.7); Potassium 4.4 mmol/L (3.5-5.1); Sodium 137 mmol/L (136-145)
[2022-04-06 06:31] LABS: #Eosinphils 0.2 thou/uL (0.0-0.7); #Lymphocytes 1.8 thou/uL (1.20-3.40); #Monocytes 0.7 thou/uL (0.11-0.59); #Neutrophils 3.5 thou/uL (1.40-6.50); %Eosinophils 2.8 % (0.0-10.0); %Lymphocytes 29.4 % (21.0-51.0); %Monocytes 11.7 % (0.0-10.0); %Neutrophils 56.1 % (42.0-75.0); Hemoglobin 9.7 g/dL (12.0-16.0); Mean Corpuscular HGB CONC 31.6 g/dL (32.0-36.0); Mean Corpuscular Hemoglobin 31.7 pg (27.0-31.0); Platelet Count 277 thou/uL (130-400); RBC Distribution Width 12.3 % (11.5-14.5); Red Blood Cell (RBC) Count 3.05 mill/uL (4.20-5.40); White Blood Cell (WBC) Count 6.3 thou/uL (4.8-10.8)
[2022-04-06] MEDS: HumaLOG 300 UNITS/3 ML VIAL SC PRN ×2 (06:38→21:10)
[2022-04-06] MEDS: Divalproex Sodium DR 500 MG TAB PO SCH ×2 (09:06→21:09)
[2022-04-06] MEDS: Famotidine 20 MG TAB PO SCH ×2 (09:07→21:09)
[2022-04-06] MEDS: Haloperidol 5 MG TAB PO SCH ×2 (09:07→21:08)
[2022-04-06] MEDS: Ferrous Sulfate 325 MG TAB PO SCH (09:07)
[2022-04-06] MEDS: Benztropine 1 MG TAB PO SCH ×2 (09:08→21:09)
[2022-04-06] MEDS: Sacubitril 49 MG/Valsartan 51 MG TABLET PO SCH ×2 (09:08→21:08)
[2022-04-06] MEDS: NIFEdipine XL 30 MG TAB PO SCH ×2 (09:08→21:09)
[2022-04-06] MEDS: Aripiprazole 15 MG TAB PO SCH (21:08)
[2022-04-06] MEDS: Atorvastatin Calcium 10 MG TAB PO SCH (21:09)
[2022-04-06] MEDS: Melatonin 3 MG TAB PO SCH (21:09)
[2022-04-06] MEDS: Insulin Glargine 30 UNITS/0.3 ML VIAL SC SCH (21:09)
[2022-04-07 05:40] LABS: #Eosinphils 0.2 thou/uL (0.0-0.7); #Lymphocytes 1.7 thou/uL (1.20-3.40); #Monocytes 0.9 thou/uL (0.11-0.59); #Neutrophils 5.6 thou/uL (1.40-6.50); %Basophils 0.1 % (0.0-1.0); %Eosinophils 2.9 % (0.0-10.0); %Lymphocytes 19.8 % (21.0-51.0); %Monocytes 10.6 % (0.0-10.0); %Neutrophils 66.6 % (42.0-75.0); Hemoglobin 10.3 g/dL (12.0-16.0); Mean Corpuscular HGB CONC 31.7 g/dL (32.0-36.0); Mean Corpuscular Hemoglobin 31.4 pg (27.0-31.0); Mean Corpuscular Volume 99.3 fL (78.0-98.0); Mean Platelet Volume 6.7 fL (7.4-10.4); Platelet Count 295 thou/uL (130-400); RBC Distribution Width 12.2 % (11.5-14.5); Red Blood Cell (RBC) Count 3.28 mill/uL (4.20-5.40); White Blood Cell (WBC) Count 8.4 thou/uL (4.8-10.8)
[2022-04-07 06:02] LABS: Anion Gap 12 mmol/L (10-20); BUN (Urea Nitrogen) 30 mg/dL (9.8-20.1); Calc. Creatinine Clearance 85 mL/min (70-130); Calcium 8.6 mg/dL (7.8-10.44); Carbon Dioxide 25 mmol/L (23-31); Chloride 106 mmol/L (98-107); Estimated GFR 59; Glucose 170 mg/dL (80-115); Potassium 4.4 mmol/L (3.5-5.1); Sodium 139 mmol/L (136-145)
[2022-04-07] MEDS: HumaLOG 300 UNITS/3 ML VIAL SC PRN ×3 (06:05→21:18)
[2022-04-07] MEDS: Benztropine 1 MG TAB PO SCH ×2 (09:22→21:16)
[2022-04-07] MEDS: Ferrous Sulfate 325 MG TAB PO SCH (09:22)
[2022-04-07] MEDS: Divalproex Sodium DR 500 MG TAB PO SCH ×2 (09:22→21:17)
[2022-04-07] MEDS: Famotidine 20 MG TAB PO SCH ×2 (09:23→21:16)
[2022-04-07] MEDS: NIFEdipine XL 30 MG TAB PO SCH ×2 (09:23→21:16)
[2022-04-07] MEDS: Sacubitril 49 MG/Valsartan 51 MG TABLET PO SCH ×2 (09:24→21:16)
[2022-04-07] MEDS: Haloperidol 5 MG TAB PO SCH ×2 (10:23→21:17)
[2022-04-07] MEDS: Aripiprazole 15 MG TAB PO SCH (21:16)
[2022-04-07] MEDS: Atorvastatin Calcium 10 MG TAB PO SCH (21:17)
[2022-04-07] MEDS: Melatonin 3 MG TAB PO SCH (21:17)
[2022-04-07] MEDS: Insulin Glargine 30 UNITS/0.3 ML VIAL SC SCH (21:19)
[2022-04-08 05:48] LABS: #Eosinphils 0.1 thou/uL (0.0-0.7); #Lymphocytes 1.8 thou/uL (1.20-3.40); #Monocytes 0.7 thou/uL (0.11-0.59); #Neutrophils 3.2 thou/uL (1.40-6.50); %Eosinophils 2.2 % (0.0-10.0); %Lymphocytes 30.5 % (21.0-51.0); %Monocytes 11.3 % (0.0-10.0); Hemoglobin 9.9 g/dL (12.0-16.0); Mean Corpuscular HGB CONC 32.1 g/dL (32.0-36.0); Mean Corpuscular Volume 99.9 fL (78.0-98.0); Mean Platelet Volume 6.6 fL (7.4-10.4); Platelet Count 258 thou/uL (130-400); RBC Distribution Width 12.1 % (11.5-14.5); White Blood Cell (WBC) Count 5.8 thou/uL (4.8-10.8)
[2022-04-08 06:10] LABS: Anion Gap 10 mmol/L (10-20); BUN (Urea Nitrogen) 32 mg/dL (9.8-20.1); Calc. Creatinine Clearance 70 mL/min (70-130); Calcium 8.5 mg/dL (7.8-10.44); Carbon Dioxide 26 mmol/L (23-31); Chloride 107 mmol/L (98-107); Estimated GFR 48; Glucose 209 mg/dL (80-115); Potassium 4.7 mmol/L (3.5-5.1); Sodium 138 mmol/L (136-145)
[2022-04-08] MEDS: HumaLOG 300 UNITS/3 ML VIAL SC PRN ×3 (06:14→16:47)
[2022-04-08] MEDS: Acetaminophen 500 MG TAB PO PRN (06:36)
[2022-04-08] MEDS: NIFEdipine XL 30 MG TAB PO SCH ×2 (08:26→20:53)
[2022-04-08] MEDS: Divalproex Sodium DR 500 MG TAB PO SCH ×2 (08:26→20:53)
[2022-04-08] MEDS: Haloperidol 5 MG TAB PO SCH ×2 (08:27→20:53)
[2022-04-08] MEDS: Sacubitril 49 MG/Valsartan 51 MG TABLET PO SCH ×2 (08:27→20:52)
[2022-04-08] MEDS: Famotidine 20 MG TAB PO SCH ×2 (08:27→20:53)
[2022-04-08] MEDS: Benztropine 1 MG TAB PO SCH ×2 (08:27→20:53)
[2022-04-08] MEDS: Ferrous Sulfate 325 MG TAB PO SCH (08:27)
[2022-04-08] MEDS: Melatonin 3 MG TAB PO SCH (20:52)
[2022-04-08] MEDS: Atorvastatin Calcium 10 MG TAB PO SCH (20:54)
[2022-04-08] MEDS: Aripiprazole 15 MG TAB PO SCH (20:55)
[2022-04-08] MEDS: Insulin Glargine 30 UNITS/0.3 ML VIAL SC SCH (21:04)
[2022-04-09] MEDS: HumaLOG 300 UNITS/3 ML VIAL SC PRN ×2 (06:06→20:51)
[2022-04-09] MEDS: Acetaminophen 500 MG TAB PO PRN (06:48)
[2022-04-09] MEDS: Sacubitril 49 MG/Valsartan 51 MG TABLET PO SCH ×2 (09:04→20:50)
[2022-04-09] MEDS: Divalproex Sodium DR 500 MG TAB PO SCH ×2 (09:05→20:49)
[2022-04-09] MEDS: Benztropine 1 MG TAB PO SCH ×2 (09:05→20:48)
[2022-04-09] MEDS: NIFEdipine XL 30 MG TAB PO SCH ×2 (09:05→20:48)
[2022-04-09] MEDS: Haloperidol 5 MG TAB PO SCH ×2 (09:06→20:49)
[2022-04-09] MEDS: Ferrous Sulfate 325 MG TAB PO SCH (09:07)
[2022-04-09] MEDS: Famotidine 20 MG TAB PO SCH ×2 (09:09→20:50)
[2022-04-09] MEDS ORDERED: Amlodipine 5 MG TAB PO SCH (10:25)
[2022-04-09] MEDS ORDERED: NIFEdipine XL 30 MG TAB PO SCH ×2 (10:30→11:00)
[2022-04-09] MEDS: Melatonin 3 MG TAB PO SCH (20:49)
[2022-04-09] MEDS: Atorvastatin Calcium 10 MG TAB PO SCH (20:50)
[2022-04-09] MEDS: Insulin Glargine 30 UNITS/0.3 ML VIAL SC SCH (20:50)
[2022-04-09] MEDS: Aripiprazole 15 MG TAB PO SCH (20:51)
[2022-04-10] MEDS: Acetaminophen 500 MG TAB PO PRN (03:21)
[2022-04-10] MEDS: HumaLOG 300 UNITS/3 ML VIAL SC PRN ×3 (06:20→16:10)
[2022-04-10] MEDS: Ferrous Sulfate 325 MG TAB PO SCH (09:03)
[2022-04-10] MEDS: Divalproex Sodium DR 500 MG TAB PO SCH (09:04)
[2022-04-10] MEDS: Famotidine 20 MG TAB PO SCH (09:04)
[2022-04-10] MEDS: Haloperidol 5 MG TAB PO SCH (09:04)
[2022-04-10] MEDS: Benztropine 1 MG TAB PO SCH (09:04)
[2022-04-10] MEDS: NIFEdipine XL 30 MG TAB PO SCH (09:05)
[2022-04-10] MEDS: Sacubitril 49 MG/Valsartan 51 MG TABLET PO SCH (09:06)
[2022-04-10 12:25] VITALS: TEMP 98.1
[2022-04-10 16:10] VITALS: BP 151/89
== END 2022-04-10 16:35 | disposition home or self-care (01) | DRG 199 ==
LOC: ERS 10:01 → SURG B 12:08 → ERHOLD 12:28 → 2NO 19:38 → SURG B 04-05 11:21
PROVIDERS: ADMIT Internal Medicine; ATTEND Internal Medicine
PROC: 0W9B30Z Drainage of Left Pleural Cavity with Drainage Device, Percutaneous Approach (ICD-10-PCS; principal; 2022-04-03)
DX: S27.1XXA Traumatic hemothorax, initial encounter (principal); I50.23 Acute on chronic systolic (congestive) heart failure; J96.01 Acute respiratory failure with hypoxia; S22.42XA Multiple fractures of ribs, left side, initial encounter for closed fracture; S32.019A Unspecified fracture of first lumbar vertebra, initial encounter for closed fracture; S22.059A Unspecified fracture of T5-T6 vertebra, initial encounter for closed fracture; N17.9 Acute kidney failure, unspecified; I13.0 Hypertensive heart and chronic kidney disease with heart failure and stage 1 through stage 4 chronic kidney disease, or unspecified chronic kidney disease; J91.8 Pleural effusion in other conditions classified elsewhere; Z20.822 Contact with and (suspected) exposure to COVID-19; F25.9 Schizoaffective disorder, unspecified; N18.31 Chronic kidney disease, stage 3a; E11.22 Type 2 diabetes mellitus with diabetic chronic kidney disease; E78.5 Hyperlipidemia, unspecified; G40.409 Other generalized epilepsy and epileptic syndromes, not intractable, without status epilepticus; F41.9 Anxiety disorder, unspecified; F17.210 Nicotine dependence, cigarettes, uncomplicated; F03.90 Unspecified dementia, unspecified severity, without behavioral disturbance, psychotic disturbance, mood disturbance, and anxiety; J44.9 Chronic obstructive pulmonary disease, unspecified; D63.1 Anemia in chronic kidney disease; W01.0XXA Fall on same level from slipping, tripping and stumbling without subsequent striking against object, initial encounter; Z28.21 Immunization not carried out because of patient refusal; Z90.710 Acquired absence of both cervix and uterus; Z79.899 Other long term (current) drug therapy; Z79.82 Long term (current) use of aspirin; Z79.4 Long term (current) use of insulin
CPT/HCPCS: 36415; 36416; 71045; 71260; 76770; 80048; 80053; 81001; 82150; 82553; 82945; 83615; 83735; 83880; 83986; 84100; 84157; 84478; 84484; 85025; 85060; 85610; 85730; 87070; 87116; 87205; 87206; 88112; 88305; 88341; 88342; 89051; 93005; 94760; 96374; 96375; J0360; J0690; J1815; J2270; Q9967; S0028; U0003; U0005

== ENCOUNTER 2022-04-30 08:46 | Inpatient (IN) | payer OTHER ==
[2022-04-30 09:20] LABS: #Eosinphils 0.1 thou/uL (0.0-0.7); #Lymphocytes 3.2 thou/uL (1.20-3.40); #Monocytes 0.6 thou/uL (0.11-0.59); #Neutrophils 4.5 thou/uL (1.40-6.50); %Basophils 0.4 % (0.0-1.0); %Lymphocytes 37.9 % (21.0-51.0); %Neutrophils 53.8 % (42.0-75.0); Hemoglobin 10.4 g/dL (12.0-16.0); Mean Corpuscular HGB CONC 32.1 g/dL (32.0-36.0); Mean Corpuscular Hemoglobin 32.9 pg (27.0-31.0); Mean Platelet Volume 7.4 fL (7.4-10.4); Platelet Count 263 thou/uL (130-400); RBC Distribution Width 14.6 % (11.5-14.5); Red Blood Cell (RBC) Count 3.17 mill/uL (4.20-5.40); White Blood Cell (WBC) Count 8.5 thou/uL (4.8-10.8)
[2022-04-30 09:34] LABS: ALT (SGPT) 28 U/L (8-55); AST (SGOT) 26 U/L (5-34); Albumin 3.4 g/dL (3.4-4.8); Alkaline Phosphatase 230 U/L (40-110); Anion Gap 15 mmol/L (10-20); BUN (Urea Nitrogen) 42 mg/dL (9.8-20.1); Bilirubin, Total 0.5 mg/dL (0.2-1.2); Calc. Creatinine Clearance 0 mL/min (70-130); Calcium 9.5 mg/dL (7.8-10.44); Carbon Dioxide 26 mmol/L (23-31); Chloride 107 mmol/L (98-107); Estimated GFR 34; Globulin 4.9 g/dL (2.4-3.5); Glucose 162 mg/dL (80-115); Potassium 4.4 mmol/L (3.5-5.1); Protein, Total 8.3 g/dL (5.8-8.1); Sodium 144 mmol/L (136-145)
[2022-04-30] MEDS ORDERED: Furosemide 40 MG/4 ML VIAL ONE (09:43)
[2022-04-30] MEDS ORDERED: hydrALAZINE 20 MG/ML VIAL SLOW IVP PRN (11:01)
[2022-04-30] MEDS ORDERED: Dextrose 5% in Water 1,000 ML IV PRN (11:01)
[2022-04-30] MEDS ORDERED: HumaLOG 300 UNITS/3 ML VIAL SC PRN (11:01)
[2022-04-30] MEDS ORDERED: Ondansetron PF 4 MG/2 ML Vial IVP PRN (11:01)
[2022-04-30] MEDS ORDERED: Ondansetron ODT 4 MG TAB PO PRN (11:01)
[2022-04-30] MEDS ORDERED: Dextrose 50% Abboject 50 ML SYRINGE SLOW IVP PRN (11:01)
[2022-04-30 13:46] LABS: SARS-CoV-2 NAA Rapid Test Not Detected (NotDetected)
[2022-04-30] MEDS: Furosemide 40 MG/4 ML VIAL SLOW IVP SCH (16:12)
[2022-04-30 16:46] VITALS: BMI 40.4
[2022-04-30] MEDS ORDERED: FLU VACC QS2022-23(6MOS UP)/PF 60 MCG/0.5 ML SYRINGE IM ONE (17:00)
[2022-04-30] MEDS: Benztropine 1 MG TAB PO SCH (20:46)
[2022-04-30] MEDS: NIFEdipine XL 60 MG TAB PO SCH (20:46)
[2022-04-30] MEDS: Famotidine 20 MG TAB PO SCH (20:48)
[2022-04-30] MEDS: Atorvastatin Calcium 10 MG TAB PO SCH (20:48)
[2022-04-30] MEDS: Melatonin 3 MG TAB PO SCH (20:48)
[2022-04-30] MEDS: Sacubitril 49 MG/Valsartan 51 MG TABLET PO SCH (20:59)
[2022-04-30] MEDS ORDERED: Insulin Glargine 30 UNITS/0.3 ML VIAL SC SCH (21:00)
[2022-04-30] MEDS: Divalproex Sodium DR 500 MG TAB PO SCH (21:11)
[2022-04-30] MEDS: Aripiprazole 15 MG TAB PO SCH (21:12)
[2022-04-30] MEDS: Haloperidol 5 MG TAB PO SCH (21:13)
[2022-05-01 05:04] LABS: #Eosinphils 0.1 thou/uL (0.0-0.7); #Lymphocytes 1.7 thou/uL (1.20-3.40); #Monocytes 0.5 thou/uL (0.11-0.59); #Neutrophils 2.6 thou/uL (1.40-6.50); %Basophils 0.5 % (0.0-1.0); %Eosinophils 1.6 % (0.0-10.0); %Lymphocytes 34.3 % (21.0-51.0); %Monocytes 10.8 % (0.0-10.0); %Neutrophils 52.9 % (42.0-75.0); Hemoglobin 8.6 g/dL (12.0-16.0); Mean Corpuscular HGB CONC 30.7 g/dL (32.0-36.0); Mean Corpuscular Hemoglobin 31.6 pg (27.0-31.0); Mean Platelet Volume 7.7 fL (7.4-10.4); Platelet Count 225 thou/uL (130-400); Red Blood Cell (RBC) Count 2.72 mill/uL (4.20-5.40); White Blood Cell (WBC) Count 4.9 thou/uL (4.8-10.8)
[2022-05-01 05:24] LABS: ALT (SGPT) 19 U/L (8-55); AST (SGOT) 14 U/L (5-34); Albumin 2.8 g/dL (3.4-4.8); Alkaline Phosphatase 184 U/L (40-110); Anion Gap 12 mmol/L (10-20); BUN (Urea Nitrogen) 43 mg/dL (9.8-20.1); Bilirubin, Total 0.3 mg/dL (0.2-1.2); Calc. Creatinine Clearance 50 mL/min (70-130); Calcium 8.8 mg/dL (7.8-10.44); Carbon Dioxide 28 mmol/L (23-31); Chloride 106 mmol/L (98-107); Estimated GFR 30; Globulin 3.8 g/dL (2.4-3.5); Glucose 238 mg/dL (80-115); Magnesium 2.1 mg/dL (1.6-2.6); Potassium 4.2 mmol/L (3.5-5.1); Protein, Total 6.6 g/dL (5.8-8.1); Sodium 142 mmol/L (136-145)
[2022-05-01] MEDS: Furosemide 40 MG/4 ML VIAL SLOW IVP SCH ×2 (05:32→14:42)
[2022-05-01] MEDS: HumaLOG 300 UNITS/3 ML VIAL SC PRN (05:42)
[2022-05-01] MEDS: Benztropine 1 MG TAB PO SCH ×2 (09:08→21:45)
[2022-05-01] MEDS: Ferrous Sulfate 325 MG TAB PO SCH (09:08)
[2022-05-01] MEDS: NIFEdipine XL 60 MG TAB PO SCH ×2 (09:08→21:45)
[2022-05-01] MEDS: Sacubitril 49 MG/Valsartan 51 MG TABLET PO SCH ×2 (09:08→21:45)
[2022-05-01] MEDS: Haloperidol 5 MG TAB PO SCH ×2 (09:08→21:45)
[2022-05-01] MEDS: Aspirin 81 mg Enteric Coated Tablet PO SCH (09:09)
[2022-05-01] MEDS: Magnesium Oxide 400 MG TAB PO SCH (09:09)
[2022-05-01] MEDS: Divalproex Sodium DR 500 MG TAB PO SCH ×2 (09:10→22:05)
[2022-05-01] MEDS ORDERED: Empagliflozin 10 MG TAB PO SCH (12:15)
[2022-05-01] MEDS: Carvedilol 6.25 MG TAB PO SCH (17:11)
[2022-05-01 17:54] LABS: Bacteria/HPF None Seen HPF (None Seen); Bilirubin Negative (Negative); Blood, Urine Negative (Negative); Clarity Clear (Clear); Glucose, Urine (Dipstick) Normal (Negative); Ketone, Urine Negative (Negative); Leukocyte Negative Leu/uL (Negative); Nitrite Negative (Negative); Protein, Urine (Dipstick) 50 mg/dL (Neg-Trace); RBC/HPF 0-3 HPF (0-3); Squamous Epithelial 0-3 HPF (0-3); Urobilinogen Normal mg/dL (Less than 2); WBC/HPF 0-3 HPF (0-3); pH, Urine 5.5 (5.0-9.0)
[2022-05-01] MEDS: Melatonin 3 MG TAB PO SCH (21:45)
[2022-05-01] MEDS: Atorvastatin Calcium 10 MG TAB PO SCH (21:45)
[2022-05-01] MEDS: Famotidine 20 MG TAB PO SCH (21:45)
[2022-05-01] MEDS: Insulin Glargine 30 UNITS/0.3 ML VIAL SC SCH (21:46)
[2022-05-01] MEDS: Aripiprazole 15 MG TAB PO SCH (22:05)
[2022-05-02 04:49] LABS: #Eosinphils 0.1 thou/uL (0.0-0.7); #Lymphocytes 1.5 thou/uL (1.20-3.40); #Monocytes 0.5 thou/uL (0.11-0.59); #Neutrophils 2.5 thou/uL (1.40-6.50); %Basophils 0.5 % (0.0-1.0); %Eosinophils 1.8 % (0.0-10.0); %Lymphocytes 33.3 % (21.0-51.0); %Neutrophils 53.4 % (42.0-75.0); Hemoglobin 8.6 g/dL (12.0-16.0); Mean Corpuscular Hemoglobin 31.7 pg (27.0-31.0); Mean Platelet Volume 7.4 fL (7.4-10.4); Platelet Count 222 thou/uL (130-400); RBC Distribution Width 14.9 % (11.5-14.5); White Blood Cell (WBC) Count 4.6 thou/uL (4.8-10.8)
[2022-05-02 04:57] LABS: Phosphorus 4.2 mg/dL (2.3-4.7)
[2022-05-02 05:00] LABS: Anion Gap 12 mmol/L (10-20); BUN (Urea Nitrogen) 45 mg/dL (9.8-20.1); Calc. Creatinine Clearance 50 mL/min (70-130); Calcium 8.4 mg/dL (7.8-10.44); Carbon Dioxide 30 mmol/L (23-31); Cardiac Risk 2.9 (Less than 4.5); Chloride 103 mmol/L (98-107); Cholesterol 155 mg/dl (< 200 Desired); Estimated GFR 29; Glucose 204 mg/dL (80-115); HDL Cholesterol 53 mg/dL (>60 Neg Risk); LDL Cholesterol, Calculated 83 mg/dL; Potassium 4.4 mmol/L (3.5-5.1); Sodium 141 mmol/L (136-145); Triglycerides 95 mg/dL (Less than 150)
[2022-05-02] MEDS: Furosemide 40 MG/4 ML VIAL SLOW IVP SCH ×2 (06:04→14:37)
[2022-05-02] MEDS: HumaLOG 300 UNITS/3 ML VIAL SC PRN (06:09)
[2022-05-02] MEDS ORDERED: Atorvastatin Calcium 10 MG TAB PO SCH (07:59)
[2022-05-02] MEDS: Aspirin 81 mg Enteric Coated Tablet PO SCH (09:42)
[2022-05-02] MEDS: NIFEdipine XL 60 MG TAB PO SCH ×2 (09:42→21:03)
[2022-05-02] MEDS: Haloperidol 5 MG TAB PO SCH ×2 (09:42→21:08)
[2022-05-02] MEDS: Carvedilol 6.25 MG TAB PO SCH ×2 (09:42→18:25)
[2022-05-02] MEDS: Divalproex Sodium DR 500 MG TAB PO SCH ×2 (09:42→21:03)
[2022-05-02] MEDS: Empagliflozin 10 MG TAB PO SCH (09:42)
[2022-05-02] MEDS: Ferrous Sulfate 325 MG TAB PO SCH (09:42)
[2022-05-02] MEDS: Magnesium Oxide 400 MG TAB PO SCH (09:42)
[2022-05-02] MEDS: Benztropine 1 MG TAB PO SCH ×2 (09:42→21:03)
[2022-05-02] MEDS: Sacubitril 49 MG/Valsartan 51 MG TABLET PO SCH ×2 (09:43→21:04)
[2022-05-02 17:25] LABS: Creatinine, Urine 44.86 mg/dL (47-110)
[2022-05-02 17:28] LABS: Microalbumin Urine 51.2 mg/dL (0.5-50.0); Microalbumin/Creat Ratio 1141.3 mg/g (Less than 30)
[2022-05-02] MEDS: Famotidine 20 MG TAB PO SCH (21:03)
[2022-05-02] MEDS: Atorvastatin Calcium 40 MG TAB PO SCH (21:03)
[2022-05-02] MEDS: Insulin Glargine 30 UNITS/0.3 ML VIAL SC SCH (21:04)
[2022-05-02] MEDS: Aripiprazole 15 MG TAB PO SCH (21:04)
[2022-05-02] MEDS: Melatonin 3 MG TAB PO SCH (21:08)
[2022-05-03] MEDS: Furosemide 40 MG/4 ML VIAL SLOW IVP SCH ×2 (06:22→15:37)
[2022-05-03 06:56] LABS: Anion Gap 12 mmol/L (10-20); BUN (Urea Nitrogen) 45 mg/dL (9.8-20.1); Calc. Creatinine Clearance 55 mL/min (70-130); Calcium 8.7 mg/dL (7.8-10.44); Carbon Dioxide 30 mmol/L (23-31); Chloride 101 mmol/L (98-107); Estimated GFR 33; Glucose 147 mg/dL (80-115); Potassium 4.4 mmol/L (3.5-5.1); Sodium 139 mmol/L (136-145)
[2022-05-03] MEDS: Divalproex Sodium DR 500 MG TAB PO SCH ×2 (08:40→21:28)
[2022-05-03] MEDS: Aspirin 81 mg Enteric Coated Tablet PO SCH (08:40)
[2022-05-03] MEDS: Carvedilol 6.25 MG TAB PO SCH ×2 (08:40→17:56)
[2022-05-03] MEDS: Empagliflozin 10 MG TAB PO SCH (08:40)
[2022-05-03] MEDS: NIFEdipine XL 60 MG TAB PO SCH ×2 (08:40→21:27)
[2022-05-03] MEDS: Magnesium Oxide 400 MG TAB PO SCH (08:40)
[2022-05-03] MEDS: Ferrous Sulfate 325 MG TAB PO SCH (08:40)
[2022-05-03] MEDS: Sacubitril 49 MG/Valsartan 51 MG TABLET PO SCH ×2 (08:40→21:28)
[2022-05-03] MEDS: Haloperidol 5 MG TAB PO SCH ×2 (08:41→21:28)
[2022-05-03] MEDS: Benztropine 1 MG TAB PO SCH ×2 (08:46→21:27)
[2022-05-03] MEDS: Heparin 5,000 UNITS/ML VIAL SC SCH ×2 (15:37→21:28)
[2022-05-03] MEDS: Aripiprazole 15 MG TAB PO SCH (21:27)
[2022-05-03] MEDS: Atorvastatin Calcium 40 MG TAB PO SCH (21:27)
[2022-05-03] MEDS: Famotidine 20 MG TAB PO SCH (21:27)
[2022-05-03] MEDS: Melatonin 3 MG TAB PO SCH (21:28)
[2022-05-03] MEDS: Insulin Glargine 30 UNITS/0.3 ML VIAL SC SCH (21:28)
[2022-05-04 06:01] LABS: Band 1 % (5-11); Eosinophils 2 % (0-10); Lymphocytes 29 % (21-51); MDiff Complete? YES; Mean Corpuscular HGB CONC 31.3 g/dL (32.0-36.0); Mean Corpuscular Hemoglobin 31.8 pg (27.0-31.0); Mean Platelet Volume 6.9 fL (7.4-10.4); Monocytes 15 % (0-10); Neutrophil 53 % (42-75); Platelet Count 211 thou/uL (130-400); RBC Distribution Width 14.9 % (11.5-14.5); Red Blood Cell (RBC) Count 3.13 mill/uL (4.20-5.40); White Blood Cell (WBC) Count 4.3 thou/uL (4.8-10.8)
[2022-05-04] MEDS: Furosemide 40 MG/4 ML VIAL SLOW IVP SCH ×2 (06:05→14:21)
[2022-05-04 06:09] LABS: Anion Gap 12 mmol/L (10-20); BUN (Urea Nitrogen) 48 mg/dL (9.8-20.1); Calc. Creatinine Clearance 52 mL/min (70-130); Calcium 8.8 mg/dL (7.8-10.44); Carbon Dioxide 29 mmol/L (23-31); Chloride 99 mmol/L (98-107); Estimated GFR 31; Glucose 127 mg/dL (80-115); Potassium 4.4 mmol/L (3.5-5.1); Sodium 136 mmol/L (136-145)
[2022-05-04] MEDS: Aspirin 81 mg Enteric Coated Tablet PO SCH (09:11)
[2022-05-04] MEDS: Heparin 5,000 UNITS/ML VIAL SC SCH ×3 (09:11→21:37)
[2022-05-04] MEDS: Haloperidol 5 MG TAB PO SCH ×2 (09:11→21:37)
[2022-05-04] MEDS: Benztropine 1 MG TAB PO SCH ×2 (09:11→21:36)
[2022-05-04] MEDS: Carvedilol 6.25 MG TAB PO SCH ×2 (09:11→17:00)
[2022-05-04] MEDS: Ferrous Sulfate 325 MG TAB PO SCH (09:11)
[2022-05-04] MEDS: Divalproex Sodium DR 500 MG TAB PO SCH ×2 (09:11→21:35)
[2022-05-04] MEDS: Magnesium Oxide 400 MG TAB PO SCH (09:11)
[2022-05-04] MEDS: NIFEdipine XL 60 MG TAB PO SCH ×2 (09:12→21:35)
[2022-05-04] MEDS: Sacubitril 49 MG/Valsartan 51 MG TABLET PO SCH ×2 (09:12→21:35)
[2022-05-04 15:01] LABS: Actual Bicarbonate (HCO3a) 33.5 mEq/L (22-28); Base Excess (BEa) 7.7 mEq/L (-2.0 to +3.0); CO2 Tension 53.3 mmHg (35.0-45.0); Calcium, Ionized (arterial) 1.13 mmol/L (1.12-1.30); Carboxyhemoglobin (COHb) 0.6 gm% (0.0-3.0); O2 Tension (PaO2), arterial 73.3 mmHg (> 80.0); Potassium - ABG Lab 5.04 mmol/L (3.70-5.30); pH, Arterial 7.42 (7.35-7.45)
[2022-05-04 15:02] LABS: Puncture Site RRA
[2022-05-04] MEDS: Famotidine 20 MG TAB PO SCH (21:35)
[2022-05-04] MEDS: Aripiprazole 15 MG TAB PO SCH (21:35)
[2022-05-04] MEDS: Atorvastatin Calcium 40 MG TAB PO SCH (21:36)
[2022-05-04] MEDS: Melatonin 3 MG TAB PO SCH (21:36)
[2022-05-04] MEDS: Insulin Glargine 30 UNITS/0.3 ML VIAL SC SCH (21:37)
[2022-05-04] MEDS: Acetaminophen 500 MG TAB PO PRN (21:38)
[2022-05-05] MEDS: Furosemide 40 MG/4 ML VIAL SLOW IVP SCH ×2 (06:42→14:09)
[2022-05-05 08:46] LABS: Anion Gap 11 mmol/L (10-20); BUN (Urea Nitrogen) 53 mg/dL (9.8-20.1); Calc. Creatinine Clearance 53 mL/min (70-130); Calcium 9.2 mg/dL (7.8-10.44); Carbon Dioxide 31 mmol/L (23-31); Chloride 100 mmol/L (98-107); Estimated GFR 34; Potassium 4.6 mmol/L (3.5-5.1); Sodium 137 mmol/L (136-145)
[2022-05-05 08:48] LABS: Glucose 56 mg/dL (80-115)
[2022-05-05] MEDS: Carvedilol 6.25 MG TAB PO SCH ×2 (09:02→17:55)
[2022-05-05] MEDS: NIFEdipine XL 60 MG TAB PO SCH ×2 (09:03→20:49)
[2022-05-05] MEDS: Benztropine 1 MG TAB PO SCH ×2 (09:03→20:49)
[2022-05-05] MEDS: Heparin 5,000 UNITS/ML VIAL SC SCH ×3 (09:03→20:51)
[2022-05-05] MEDS: Divalproex Sodium DR 500 MG TAB PO SCH ×2 (09:03→20:49)
[2022-05-05] MEDS: Aspirin 81 mg Enteric Coated Tablet PO SCH (09:03)
[2022-05-05] MEDS: Magnesium Oxide 400 MG TAB PO SCH (09:03)
[2022-05-05] MEDS: Haloperidol 5 MG TAB PO SCH ×2 (09:03→20:51)
[2022-05-05] MEDS: Ferrous Sulfate 325 MG TAB PO SCH (09:03)
[2022-05-05] MEDS: Sacubitril 49 MG/Valsartan 51 MG TABLET PO SCH ×2 (09:03→20:49)
[2022-05-05] MEDS: Famotidine 20 MG TAB PO SCH (20:49)
[2022-05-05] MEDS: Atorvastatin Calcium 40 MG TAB PO SCH (20:50)
[2022-05-05] MEDS: Melatonin 3 MG TAB PO SCH (20:50)
[2022-05-05] MEDS: Insulin Glargine 30 UNITS/0.3 ML VIAL SC SCH (20:51)
[2022-05-05] MEDS: Aripiprazole 15 MG TAB PO SCH (20:51)
[2022-05-05] MEDS: Acetaminophen 500 MG TAB PO PRN (20:52)
[2022-05-06] MEDS: Furosemide 40 MG/4 ML VIAL SLOW IVP SCH ×2 (06:29→14:08)
[2022-05-06] MEDS: Heparin 5,000 UNITS/ML VIAL SC SCH ×3 (08:27→20:19)
[2022-05-06] MEDS: Haloperidol 5 MG TAB PO SCH ×2 (08:27→20:19)
[2022-05-06] MEDS: Ferrous Sulfate 325 MG TAB PO SCH (08:28)
[2022-05-06] MEDS: Divalproex Sodium DR 500 MG TAB PO SCH ×2 (08:28→20:19)
[2022-05-06] MEDS: Benztropine 1 MG TAB PO SCH ×2 (08:28→20:20)
[2022-05-06] MEDS: Aspirin 81 mg Enteric Coated Tablet PO SCH (08:28)
[2022-05-06] MEDS: Sacubitril 49 MG/Valsartan 51 MG TABLET PO SCH ×2 (08:28→20:26)
[2022-05-06] MEDS: Magnesium Oxide 400 MG TAB PO SCH (08:28)
[2022-05-06] MEDS: NIFEdipine XL 60 MG TAB PO SCH ×2 (08:28→20:20)
[2022-05-06] MEDS: Carvedilol 6.25 MG TAB PO SCH ×2 (08:28→16:57)
[2022-05-06 09:05] LABS: Anion Gap 14 mmol/L (10-20); BUN (Urea Nitrogen) 60 mg/dL (9.8-20.1); Calc. Creatinine Clearance 49 mL/min (70-130); Calcium 9.4 mg/dL (7.8-10.44); Carbon Dioxide 29 mmol/L (23-31); Chloride 100 mmol/L (98-107); Estimated GFR 31; Glucose 128 mg/dL (80-115); Potassium 4.7 mmol/L (3.5-5.1); Sodium 138 mmol/L (136-145)
[2022-05-06] MEDS: Melatonin 3 MG TAB PO SCH (20:19)
[2022-05-06] MEDS: Atorvastatin Calcium 40 MG TAB PO SCH (20:20)
[2022-05-06] MEDS: Famotidine 20 MG TAB PO SCH (20:20)
[2022-05-06] MEDS: Aripiprazole 15 MG TAB PO SCH (20:23)
[2022-05-06] MEDS: Insulin Glargine 30 UNITS/0.3 ML VIAL SC SCH (20:25)
[2022-05-07] MEDS: Furosemide 40 MG/4 ML VIAL SLOW IVP SCH ×2 (05:03→15:26)
[2022-05-07 06:58] LABS: Anion Gap 15 mmol/L (10-20); BUN (Urea Nitrogen) 58 mg/dL (9.8-20.1); Calc. Creatinine Clearance 51 mL/min (70-130); Calcium 9.5 mg/dL (7.8-10.44); Carbon Dioxide 28 mmol/L (23-31); Chloride 100 mmol/L (98-107); Estimated GFR 32; Glucose 147 mg/dL (80-115); Potassium 4.6 mmol/L (3.5-5.1); Sodium 138 mmol/L (136-145)
[2022-05-07] MEDS: NIFEdipine XL 60 MG TAB PO SCH (08:29)
[2022-05-07] MEDS: Benztropine 1 MG TAB PO SCH (08:29)
[2022-05-07] MEDS: Divalproex Sodium DR 500 MG TAB PO SCH (08:30)
[2022-05-07] MEDS: Aspirin 81 mg Enteric Coated Tablet PO SCH (08:30)
[2022-05-07] MEDS: Carvedilol 6.25 MG TAB PO SCH (08:30)
[2022-05-07] MEDS: Magnesium Oxide 400 MG TAB PO SCH (08:31)
[2022-05-07] MEDS: Ferrous Sulfate 325 MG TAB PO SCH (08:31)
[2022-05-07] MEDS: Heparin 5,000 UNITS/ML VIAL SC SCH ×2 (08:31→15:26)
[2022-05-07] MEDS: Sacubitril 49 MG/Valsartan 51 MG TABLET PO SCH (08:31)
[2022-05-07] MEDS: Haloperidol 5 MG TAB PO SCH (08:33)
[2022-05-07 12:20] VITALS: BP 122/75; TEMP 98.3
== END 2022-05-07 18:18 | DRG 291 ==
LOC: ERS 08:46 → ERHOLD 11:01 → 2NO 15:50 → T4-A 05-02 16:51
PROVIDERS: ADMIT Family Medicine; ATTEND Family Medicine
DX: I13.0 Hypertensive heart and chronic kidney disease with heart failure and stage 1 through stage 4 chronic kidney disease, or unspecified chronic kidney disease (principal); I50.43 Acute on chronic combined systolic (congestive) and diastolic (congestive) heart failure; J96.01 Acute respiratory failure with hypoxia; N17.9 Acute kidney failure, unspecified; E87.20 Acidosis, unspecified; N18.4 Chronic kidney disease, stage 4 (severe); E11.22 Type 2 diabetes mellitus with diabetic chronic kidney disease; F25.9 Schizoaffective disorder, unspecified; D53.9 Nutritional anemia, unspecified; E78.5 Hyperlipidemia, unspecified; F17.210 Nicotine dependence, cigarettes, uncomplicated; N18.30 Chronic kidney disease, stage 3 unspecified; G40.409 Other generalized epilepsy and epileptic syndromes, not intractable, without status epilepticus; D63.1 Anemia in chronic kidney disease; Z88.8 Allergy status to other drugs, medicaments and biological substances; Z98.890 Other specified postprocedural states; Z90.710 Acquired absence of both cervix and uterus; Z79.899 Other long term (current) drug therapy; Z82.49 Family history of ischemic heart disease and other diseases of the circulatory system
CPT/HCPCS: 36415; 36416; 36600; 71045; 76770; 78451; 80048; 80053; 80061; 81001; 82043; 82805; 83605; 83735; 83880; 84100; 84443; 84484; 85025; 85379; 93005; 93306; 93798; 93970; 96374; 97139; A9540; J0360; J1644; J1815; J1940; U0002